=== PATIENT | male | born 1960 | race Caucasian/White ===

== ENCOUNTER 2018-05-30 03:50 | Emergency (ER) | payer OTHER ==
[~2018-05-30] VITALS: Ht 177.8 cm; Wt 97.5 kg
[~2018-05-30 03:50] MED LIST: ALLEGRA30 MG PO; CIPROFLOXACIN500 M1 PO; EPIPEN0.3 MG/0.3 IM; FISH OIL 1,001000 M2 PO; FLOMAX PO; IMITREX100 MG PO; KEFLEX500 MG PO; MEDROL DOSPAK21 TAB PO; MUSCLE RELAXER; NORCO 5-325 TA1 EACH PO; PERCOCET PO; PREVACID15 MG PO; PROTONIX40 MG PO; VITAMIN B-2100 MG PO; VITAMIN D3400 UNI2; ZYRTEC10 M5
[2018-05-30] MEDS ORDERED: AIMOVIG AU70 MG/1 ML (04:06)
[2018-05-30 05:14] LABS: URINE BILIRUBIN NEGATIVE (Negative); URINE BLOOD TRACE (Negative); URINE CLARITY CLEAR; URINE COLOR YELLOW; URINE GLUCOSE-RANDOM* NEGATIVE (Negative); URINE KETONES NEGATIVE (Negative); URINE LEUKOCYTES-REFLEX NEGATIVE (Negative); URINE NITRITE-REFLEX NEGATIVE (Negative); URINE PROTEIN (DIPSTICK) NEGATIVE (Negative); URINE SPECIFIC GRAVITY 1.015 (1.005-1.035); URINE UROBILINOGEN 0.2 E.U./dl (0.2-1.0)
[2018-05-30 05:25] LABS: HEMOGLOBIN 16.6 gm/dL (14.0-18.0)
[2018-05-30 05:27] LABS: ABSOLUTE NEUTROPHILS 8.2 thou/uL (1.4-8.2); BASOPHILS 0.5 % (0.0-2.0); EOSINOPHILS 2.8 % (0.0-3.0); HEMATOCRIT 47.4 % (42.0-52.0); LYMPHOCYTES 20.3 % (24.0-44.0); MCH 30.2 pg (26.0-34.0); MCV 86.3 fL (80.0-100.0); MONOCYTES 6.2 % (1.0-8.0); PLATELET COUNT 268 thou/uL (150-400); POLYS 70.2 % (36.0-66.0); RDW 13.1 % (10.5-14.5); WBC 11.7 thou/uL (4.0-11.0)
[2018-05-30 05:34] LABS: CALCIUM 9.9 mg/dL (8.5-10.1); CREATININE 1.1 mg/dL (0.7-1.3); POTASSIUM 3.7 mmol/L (3.5-5.1)
[2018-05-30 05:38] LABS: ALBUMIN 4.6 g/dL (3.4-5.0); TOTAL BILIRUBIN 0.6 mg/dL (<0.1-1.0); TOTAL PROTEIN 8.5 g/dL (6.4-8.2)
[2018-05-30] MEDS ORDERED: BENTYL 20 MG TA20 M1 PO (07:15)
[2018-05-30] MEDS ORDERED: NORCO 5-325 TA1 EACH PO (07:15)
[2018-05-30 07:30] VITALS: BP 147/108
--- NOTE | 2018-05-31 13:36 | EKG ---
[address] [place] [address] ELECTROCARDIOGRAM REPORT Name: DACIA MOREJON Room #: [facility] Ronal#: [id number] ������������������ Admission: 05/30/18 ������������������ Attend Phys: Discharge: 05/30/18 ������������������ Date of : 62 Report #: [id number] ����������������������������������������������������������������� [id number] THIS REPORT FOR: //name// [facility] ED Test Date: 2018-05-30 Test Time: 04:36:31 Pat Name: DCAIA MOREJON Department: Room: Gender: [employer] Assistant: : 1960 Requested By: Katerina Cain Order Number: [id number] MD: Gentry Pelletier Measurements Intervals [place] Rate: 84 P: 28 MS: 179 QRS: -29 QRSD: 88 T: 86 QT: 383 QTc: 453 Interpretive Statements Sinus rhythm Poor R wave progression Compared to ECG 05/05/2009 11:15:06 Poor R wave progression is now present Electronically Signed On 05-31-2018 13:35:45 CDT by Gentry Pelletier [email or web address] ��������������������������������������������� <ELECTRONICALLY SIGNED> ���������������������������������������� By: Gentry Pelletier MD, [facility] ��������������������������������������������� 05/31/18 1335 [id number] 043 Gentry Pelletier MD, FACC /EPI
== END 2018-05-30 07:25 | disposition home or self-care (01) ==
LOC: ER 03:50
PROVIDERS: Student in an Organized Health Care Education/Training Program
DX: K58.9 Irritable bowel syndrome, unspecified (principal); K21.9 Gastro-esophageal reflux disease without esophagitis; G43.909 Migraine, unspecified, not intractable, without status migrainosus; Z88.0 Allergy status to penicillin; Z91.012 Allergy to eggs; Z88.1 Allergy status to other antibiotic agents